=== PATIENT | female | born 1985 | race Caucasian/White ===

== ENCOUNTER 2018-02-03 15:32 | Emergency (ER) | payer OTHER, MEDICAID ==
[~2018-02-03] VITALS: Ht 172.7 cm; Wt 90.3 kg
[~2018-02-03 15:32] MED LIST: APAP650 PO; DIFLUCAN150 MG PO; IBUPROFEN 200200 M1 PO; IBUPROFEN 800800 M1 PO; MACROBID 100 M100 M1 PO; MEDROLDOSEPACK PO; NOHOMEMEDICATIONS; OXYCODONE HCL15 MG PO; PERCOCET 5-3251 EACH PO; PERCOCET PO; SEROQUEL 25 MG25 M1 PO; TOPROL XL25 MG PO; TRAMADOL 50 MG50 MG PO; TYLENOL325 MG PO; XANAX 0.5 MG0.5 MG PO
[2018-02-03] MEDS ORDERED: CELEXA10 MG PO (15:43)
[2018-02-03] MEDS ORDERED: TRAZODONE 150150 M1 PO (15:43)
[2018-02-03] MEDS ORDERED: NORCO 5-325 TA1 EAC1 PO (16:25)
[2018-02-03] MEDS ORDERED: PENICILLIN VK500 MG PO (16:25)
[2018-02-03 16:33] VITALS: BP 113/64
== END 2018-02-03 16:33 | disposition home or self-care (01) ==
LOC: M.ERS 15:32
DX: S02.5XXA Fracture of tooth (traumatic), initial encounter for closed fracture (principal); K04.7 Periapical abscess without sinus; F17.210 Nicotine dependence, cigarettes, uncomplicated; Z88.6 Allergy status to analgesic agent; Z88.8 Allergy status to other drugs, medicaments and biological substances; X58.XXXA Exposure to other specified factors, initial encounter; Y93.89 Activity, other specified; Y92.89 Other specified places as the place of occurrence of the external cause; Y99.8 Other external cause status

== ENCOUNTER 2018-09-14 20:47 | Emergency (ER) | payer OTHER, MEDICAID ==
[~2018-09-14] VITALS: Ht 172.7 cm; Wt 81.7 kg
[~2018-09-14 20:47] MED LIST changes: +CELEXA10 MG PO; +NORCO 5-325 TA1 EAC1 PO; +PENICILLIN VK500 MG PO; +TRAZODONE 150150 M1 PO
[2018-09-14 21:24] LABS: ABSOLUTE BASOPHILS 0.1 thou/uL (0.0-0.2); ABSOLUTE MONOCYTES 0.6 thou/uL (0.0-1.2); ABSOLUTE NEUTROPHILS 5.7 thou/uL (1.6-8.1); BASOPHILS 0.7 %; EOSINOPHILS 0.5 %; HEMATOCRIT 41.9 % (37.0-47.0); HEMOGLOBIN 13.8 gm/dL (12.0-15.0); LYMPHOCYTES 24.3 %; MCH 27.8 pg (26.0-34.0); MCHC 32.9 g/dL (28.0-37.0); MCV 84.7 fL (80.0-100.0); MONOCYTES 7.2 %; MPV 7.8 fl. (7.2-11.1); NUCLEATED RBCS 0 /100WBC; PLATELET COUNT* 274 thou/uL (150-400); POLYS 67.3 %; RBC 4.95 mil/uL (4.20-5.00); RDW-CV 16.1 % (10.5-14.5); WBC 8.4 thou/uL (4.0-11.0)
[2018-09-14 21:35] LABS: CALCIUM 9.2 mg/dL (8.5-10.1); CREATININE 0.8 mg/dL (0.6-1.3)
[2018-09-14 21:40] LABS: ALBUMIN 4.1 g/dL (3.4-5.0); TOTAL BILIRUBIN 0.3 mg/dL (<0.1-1.0); TOTAL PROTEIN 8.1 g/dL (6.4-8.2)
[2018-09-14 21:41] LABS: ALCOHOL < 10 mg/dL (<10); SALICYLATE 3.2 mg/dL (2.8-20.0)
[2018-09-14 21:42] LABS: ACETAMINOPHEN < 2 ug/mL (10-30)
[2018-09-14 22:59] VITALS: BP 128/92
== END 2018-09-14 22:59 | disposition home or self-care (01) ==
LOC: M.ERS 20:47
PROVIDERS: Nurse Practitioner Family
DX: R41.82 Altered mental status, unspecified (principal); T40.2X5A Adverse effect of other opioids, initial encounter; K70.30 Alcoholic cirrhosis of liver without ascites; F17.210 Nicotine dependence, cigarettes, uncomplicated; Z88.6 Allergy status to analgesic agent; Z88.8 Allergy status to other drugs, medicaments and biological substances; Y92.89 Other specified places as the place of occurrence of the external cause